=== PATIENT | female | born 1970 | race Caucasian/White ===

== ENCOUNTER 2017-04-27 17:36 | Emergency (ER) | payer BC ==
[~2017-04-27] VITALS: Ht 154.9 cm; Wt 76.7 kg
[~2017-04-27 17:36] MED LIST: VENTOLIN HFA18 GM IH; ZITHROMAX Z-PA250 MG PO
[2017-04-27 18:26] LABS: HEMATOCRIT 44.5 % (36.0-46.0); MCH 31.3 PG (29.0-34.0); MCHC 33.5 G/DL (30.0-36.0); MCV 93.5 FL (83-99); MEAN PLAT.VOLUME 10.1 uM^3 (9.5-12.4); PLATELET COUNT 285 K/uL (156-360); RBC DIS.WIDTH-CV 11.9 % (11.8-14.6); RBC DIS.WIDTH-SD 41.3 % (39-53); RED BLOOD COUNT 4.76 M/uL (3.80-5.20)
[2017-04-27 18:36] LABS: CHLORIDE 108 mEq/L (99-109); SODIUM 141 mEq/L (136-147)
[2017-04-27 18:38] LABS: GLUCOSE 99 mg/dL (70-99)
[2017-04-27 18:39] LABS: ANION GAP 7 MEQ/L (2-14)
[2017-04-27 18:42] LABS: GFR ESTIMATE (CALCULATED) 57 mL/min/
[2017-04-27 18:43] LABS: UREA NITROGEN (BUN) 12 mg/dL (9-23)
[2017-04-27 18:47] LABS: TROP-I INTERPRETATION NEGATIVE; TROPONIN-I < 0.01 ng/mL (0.0-0.30)
[2017-04-27 21:43] LABS: TROP-I INTERPRETATION NEGATIVE; TROPONIN-I < 0.01 ng/mL (0.0-0.30)
[2017-04-27 22:25] VITALS: BP 120/90
== END 2017-04-27 22:26 | disposition home or self-care (01) ==
LOC: EME 17:36
PROVIDERS: Emergency Medicine
DX: R07.9 Chest pain, unspecified (principal); F17.200 Nicotine dependence, unspecified, uncomplicated; M06.9 Rheumatoid arthritis, unspecified; Z88.0 Allergy status to penicillin; Z88.6 Allergy status to analgesic agent
CPT/HCPCS: 71020; 80048; 84484; 85027; 93005; 99281; 99285